=== PATIENT | female | born 1980 ===

== ENCOUNTER 2018-01-21 07:36 | Outpatient (CLI) | payer OTHER | END 2018-01-21 08:30 | disposition home or self-care (01) | LOC: EDBD 07:36 → NUCLEAR 07:36 | DX: E06.3 Autoimmune thyroiditis (principal) | CPT/HCPCS: 78012; A9531 ==

== ENCOUNTER 2018-01-22 14:51 | Outpatient (CLI) | payer OTHER | END 2018-01-22 16:00 | disposition home or self-care (01) | LOC: NUCLEAR 14:51 | DX: E06.3 Autoimmune thyroiditis (principal) | CPT/HCPCS: 78013; A9512 ==